=== PATIENT | female | born 1980 | race Caucasian/White ===

== ENCOUNTER 2020-08-31 17:42 | Emergency (ER) | payer OTHER, MEDICAID ==
[~2020-08-31] VITALS: Ht 167.6 cm; Wt 53.5 kg
[~2020-08-31 17:42] MED LIST: ALPRAZOLAM ER1 MG; IBUPROFEN 800800 MG PO; LEXAPRO 10 MG T10 MG; SEASONALE1 EACH; TRAMADOL 50 MG50 MG PO; VICODIN ES TAB1 EACH; ZYRTEC 10 MG TA10 MG
[2020-08-31] MEDS ORDERED: BIRTH CONTROL PO (17:52)
[2020-08-31] MEDS ORDERED: CLEOCIN HCL300 MG PO (18:18)
[2020-08-31] MEDS ORDERED: IBUPROFEN 800800 M1 PO ×2 (18:18→18:19)
[2020-08-31] MEDS ORDERED: NORCO5 PO ×2 (18:19)
[2020-08-31 19:03] VITALS: BP 127/70
== END 2020-08-31 19:05 | disposition home or self-care (01) ==
LOC: M.ERS 17:42
DX: L03.011 Cellulitis of right finger (principal); F17.210 Nicotine dependence, cigarettes, uncomplicated; F41.9 Anxiety disorder, unspecified; F32.9 Major depressive disorder, single episode, unspecified; Z91.048 Other nonmedicinal substance allergy status; Z79.899 Other long term (current) drug therapy; Z88.2 Allergy status to sulfonamides

== ENCOUNTER 2020-09-03 23:54 | Emergency (ER) | payer OTHER, MEDICAID ==
[~2020-09-03] VITALS: Ht 167.6 cm; Wt 53.5 kg
[~2020-09-03 23:54] MED LIST changes: +BIRTH CONTROL PO; +CLEOCIN HCL300 MG PO; +IBUPROFEN 800800 M1 PO; +NORCO5 PO
[2020-09-04 02:53] VITALS: BP 142/82
== END 2020-09-04 02:54 | disposition home or self-care (01) ==
LOC: M.ERS 23:54
DX: L02.511 Cutaneous abscess of right hand (principal); F41.9 Anxiety disorder, unspecified; F32.9 Major depressive disorder, single episode, unspecified; Z90.49 Acquired absence of other specified parts of digestive tract; Z91.048 Other nonmedicinal substance allergy status; Z79.2 Long term (current) use of antibiotics; Z79.899 Other long term (current) drug therapy; Z88.2 Allergy status to sulfonamides

== ENCOUNTER 2020-12-11 09:00 | Emergency (ER) | payer OTHER, MEDICAID ==
[~2020-12-11] VITALS: Ht 167.6 cm; Wt 58.2 kg
[2020-12-11] MEDS ORDERED: ZYRTEC10 M5 PO (09:14)
[2020-12-11] MEDS ORDERED: CEPHALEXIN500 MG PO (09:27)
[2020-12-11 10:03] VITALS: BP 119/82
== END 2020-12-11 10:04 | disposition home or self-care (01) ==
LOC: M.ERS 09:00
DX: S60.450A Superficial foreign body of right index finger, initial encounter (principal); F12.90 Cannabis use, unspecified, uncomplicated; Z88.1 Allergy status to other antibiotic agents; Z88.8 Allergy status to other drugs, medicaments and biological substances; Z79.899 Other long term (current) drug therapy; Z90.49 Acquired absence of other specified parts of digestive tract; W23.0XXA Caught, crushed, jammed, or pinched between moving objects, initial encounter; Y93.89 Activity, other specified; Y92.89 Other specified places as the place of occurrence of the external cause; Y99.9 Unspecified external cause status